=== PATIENT | female | born 1960 | race Caucasian/White ===

== ENCOUNTER → 2019-01-15 09:27 | Outpatient (CLI) | payer OTHER, SELFPAY ==
--- NOTE | 2019-01-15 09:31 | DI.US.S_ITS ---
PROCEDURE: US PELVIC COMPLETE INDICATIONS: PELVIC PAIN TECHNIQUE: Real-time scanning was performed of the pelvic organs, with image documentation. Additional endovaginal scanning was necessary due to incomplete visualization of the adnexal and endometrial structures by transabdominal scanning. COMPARISON: [facility], , PELVIC/TRANSVAGINAL, 05/25/2005, 14:02. [facility], PELVIC COMPLETE, 11/17/2015, 13:50. [facility], , PELVIC COMPLETE, 12/23/2015, 11:02. [facility], PELVIC COMPLETE, 12/29/2015, 7:51. FINDINGS: Transabdominal scanning: Limited scanning through the kidneys shows no hydronephrosis. No pathologic free abdominal or pelvic fluid. Endovaginal scanning: Uterus: Uterus is normal in size at 5.9 x 3.6 x 2.9 cm. The endometrium measures 5 mm in combined thickness. Incidental note is made of nabothian cysts. Ovaries: The right ovary measures 2.4 x 1.2 x 1 cm. The left ovary measures 1.9 x 1.2 x 0.6 cm. The ovaries have a normal sonographic appearance. No adnexal masses are seen. IMPRESSION: No significant abnormality is detected. No adnexal masses are seen. The endometrial stripe measures at the upper limits of normal for thickness for a postmenopausal woman at 5 mm. Dictated by: Amadeo Quiroz M.D. on 01/15/2019 at 11:35 Approved by: Amadeo Quiroz M.D. on 01/15/2019 at 11:37
== END ==
PROVIDERS: PCP Family Medicine; Visit Provider Obstetrics & Gynecology
DX: R10.2 Pelvic and perineal pain (principal); N88.8 Other specified noninflammatory disorders of cervix uteri; Z87.42 Personal history of other diseases of the female genital tract
CPT/HCPCS: 76830; 76856

== ENCOUNTER → 2020-05-27 09:13 | Outpatient (CLI) | payer OTHER, SELFPAY ==
--- NOTE | 2020-05-27 09:18 | DI.US.S_ITS ---
PROCEDURE: US ABDOMEN COMPLETE INDICATIONS: ABNORMAL LFTS TECHNIQUE: Real-time scanning was performed of the abdominal and retroperitoneal organs, with image documentation. COMPARISON: [facility], US, ABDOMEN COMPLETE, 07/22/2015, 9:24. FINDINGS: Liver: Liver is normal in size and homogeneous in echotexture. Gallbladder: The gallbladder appears normal Biliary ducts: Intrahepatic bile ducts are non-dilated. Extrahepatic bile duct caliber measures 4.1 mm. Normal is 6-7 mm or less in diameter, or 10 mm or less post-cholecystectomy. Pancreas: Visualized portions of the pancreas are sonographically normal. Spleen: Spleen is normal in size and homogeneous in echotexture. Kidneys: Kidneys are normal in size and echotexture. Right kidney measures 10.2 cm long; left kidney measures 9.5 cm long. No hydronephrosis or nephrolithiasis. No solid masses. Aorta: Visualized aorta is normal in caliber at less than 3 cm. Iliacs: Proximal common iliac arteries are normal in caliber at less than 2.5 cm. IVC: Intrahepatic inferior vena cava is patent. Miscellaneous: No free abdominal fluid. IMPRESSION: Normal abdominal ultrasound, source of abnormal laboratory analysis is not found. No sign of cirrhosis or biliary distension, and no liver mass lesion is seen. Dictated by: Blaise Randolph M.D. on 05/27/2020 at 14:30 Approved by: Blaise Randolph M.D. on 05/27/2020 at 14:32
== END ==
PROVIDERS: PCP Family Medicine; Referring Provider Family Medicine; Visit Provider Family Medicine
DX: R79.89 Other specified abnormal findings of blood chemistry (principal)
CPT/HCPCS: 76700

== ENCOUNTER → 2022-10-25 13:16 | Outpatient (CLI) | payer OTHER, SELFPAY ==
--- NOTE | 2022-10-25 13:20 | DI.CT.S_ITS ---
PROCEDURE: CT HEAD/BRAIN WO CON INDICATIONS: Dizziness and giddiness TECHNIQUE: Noncontrast 4.5 mm thick angled axial sections acquired from the foramen magnum to the vertex, with coronal and sagittal reformats. For radiation dose reduction, the following was used: automated exposure control, adjustment of mA and/or kV according to patient size. COMPARISON: [facility], CT, HEAD WITHOUT CONTRAST, 11/16/2010, 15:36. FINDINGS: Image quality: Excellent. CSF spaces: Basal cisterns are patent. No extra-axial fluid collections. The ventricles are symmetric in size and shape. Brain: No intracranial bleeds or masses. There is cerebral volume loss for age, with resultant ventricular and sulcal prominence. There are periventricular and deep white matter chronic small vessel ischemic changes. There is intracranial internal carotid artery atherosclerosis. Skull and face: Calvarium and visualized facial bones appear intact, without suspicious lesions. Sinuses: Visualized sinuses and mastoids are clear. IMPRESSION: Noncontrast head CT within normal limits for age. No imaging explanation is found for this patient's presenting symptoms. Dictated by: Amadeo Quiroz M.D. on 10/25/2022 at 13:47 Approved by: Amadeo Quiroz M.D. on 10/25/2022 at 13:47
== END ==
PROVIDERS: PCP Family Medicine; Referring Provider Family Medicine; Visit Provider Family Medicine
DX: R42 Dizziness and giddiness (principal)
CPT/HCPCS: 70450

== ENCOUNTER → 2023-05-30 | Outpatient (CLI) | payer OTHER, SELFPAY ==
--- NOTE | 2023-05-30 | DI.MG.S_ITS ---
BILATERAL DIGITAL SCREENING MAMMOGRAM 3D/2D WITH CAD: 05/30/2023 CLINICAL: Routine screening. Family history of breast cancer. Comparison is made to exams dated: 06/14/2022 mammogram, 05/21/2022 mammogram, 06/12/2020 mammogram, and 06/15/2021 mammogram - [facility]. There are scattered areas of fibroglandular density in both breasts (category b / 25%-50% glandular tissue). Current study was also evaluated with a Computer Aided Detection (CAD) system. There is a focal asymmetry in the right breast central to the nipple middle depth. No other significant masses, calcifications, or other findings are seen in either breast. There has been no significant interval change. IMPRESSION: INCOMPLETE: NEEDS ADDITIONAL IMAGING EVALUATION The focal asymmetry in the right breast is indeterminate. Additional views with possible ultrasound are recommended. Based on Tyrer-Cuzick model (a risk assessment model), the patient's lifetime risk is 21.4% and her 10 year risk is 9.0%. If a patient has an elevated risk, a more comprehensive evaluation should be considered and/or a referral to a genetic counselor. The [place] [employer], [employer], and NCCN Guidelines advise the consideration of Breast MRI as an adjunct to screening mammography in patients whose Lifetime risk to develop breast cancer is 20% or higher. This exam was interpreted at Station ID: [id number]. NOTE: For mammograms, a report in lay terms will be sent to the patient. Approximately 15% of breast malignancies will not be visualized mammographically. In the management of a palpable breast mass, a negative mammogram must not discourage biopsy of a clinically suspicious lesion. Electronically Signed By: Esperanza chapa/:06/07/2023 16:11:40 letter sent: Additional Imaging Needed ACR BI-RADS Category 0: Incomplete 3340F
== END ==
LOC: MAMMO 13:11
PROVIDERS: PCP Family Medicine; Referring Provider Family Medicine; Visit Provider Family Medicine
DX: Z12.31 Encounter for screening mammogram for malignant neoplasm of breast (principal); N64.89 Other specified disorders of breast
CPT/HCPCS: 77063; 77067

== ENCOUNTER → 2023-06-27 12:05 | Outpatient (CLI) | payer OTHER, SELFPAY ==
--- NOTE | 2023-06-27 | DI.MG.S_ITS ---
UNILATERAL RIGHT DIGITAL DIAGNOSTIC MAMMOGRAM 3D/2D WITH ADDITIONAL VIEWS: 06/27/2023 CLINICAL: Additional evaluation requested from prior study. Comparison is made to exams dated: 05/30/2023 mammogram - [facility], 06/14/2022 mammogram, 05/21/2022 mammogram, and 06/15/2021 mammogram - [facility]. There are scattered areas of fibroglandular density in the right breast (category b / 25%-50% glandular tissue). There is a focal asymmetry in the right breast at 7 o'clock middle depth. This is seen in additional views. No other significant masses or calcifications are seen in the breast. IMPRESSION: INCOMPLETE: NEEDS ADDITIONAL IMAGING EVALUATION The focal asymmetry in the right breast is indeterminate. A targeted ultrasound of the right breast is recommended and will be performed immediately following this exam. Based on Tyrer-Cuzick model (a risk assessment model), the patient's lifetime risk is 21.4% and her 10 year risk is 9.0%. If a patient has an elevated risk, a more comprehensive evaluation should be considered and/or a referral to a genetic counselor. The [place] [employer], [employer], and NCCN Guidelines advise the consideration of Breast MRI as an adjunct to screening mammography in patients whose Lifetime risk to develop breast cancer is 20% or higher. This exam was interpreted at Station ID: [id number]. NOTE: For mammograms, a report in lay terms will be sent to the patient. Approximately 15% of breast malignancies will not be visualized mammographically. In the management of a palpable breast mass, a negative mammogram must not discourage biopsy of a clinically suspicious lesion. Electronically Signed By: Esperanza chapa/:06/27/2023 12:31:27 ACR BI-RADS Category 0: Incomplete 3340F
--- NOTE | 2023-06-27 | DI.US.S_ITS ---
ULTRASOUND OF RIGHT BREAST: 06/27/2023 CLINICAL: Patient returns today to evaluate a focal asymmetry in the right breast. Comparison is made to exams dated: 06/27/2023 mammogram, 05/30/2023 mammogram - [facility], 06/14/2022 ultrasound biopsy, 06/14/2022 mammogram, 05/21/2022 ultrasound, and 05/21/2022 mammogram - [facility]. Color flow ultrasound of the right breast was performed on the areas of interest. Velasquez scale images of the real-time examination were reviewed. There is a 0.4 cm simple cyst in the right breast at 7 o'clock anterior depth. This simple cyst is anechoic. This correlates with mammography findings. IMPRESSION: BENIGN There is no sonographic evidence of malignancy. The 0.4 cm simple cyst in the right breast is benign. A 1 year screening mammogram is recommended. This exam was interpreted at Station ID: [id number]. Electronically Signed By: Esperanza chapa/:06/27/2023 13:02:36 letter sent: Normal Exam Ultrasound BI-RADS: 2 Benign
== END ==
PROVIDERS: PCP Family Medicine; Referring Provider Family Medicine; Visit Provider Family Medicine
DX: R92.8 Other abnormal and inconclusive findings on diagnostic imaging of breast (principal); N60.01 Solitary cyst of right breast
CPT/HCPCS: 76642; 77065; G0279

== ENCOUNTER → 2023-08-31 08:27 | Outpatient (CLI) | payer OTHER, SELFPAY ==
--- NOTE | 2023-08-31 08:33 | DI.US.S_ITS ---
PROCEDURE: US PELVIC COMPLETE INDICATIONS: INTERMITTENT RIGHT PELVIC DISCOMFORT/TINGES TECHNIQUE: Real-time scanning was performed of the pelvic organs, with image documentation. Additional endovaginal scanning was necessary due to incomplete visualization of the adnexal and endometrial structures by transabdominal scanning. COMPARISON: [facility], US, US PELVIC COMPLETE, 07/16/2019, 15:21. FINDINGS: Uterus: Uterus is retroverted and normal in size at 6.4 x 3.2 x 3.2 cm. The myometrium is heterogeneous. The endometrium measures 7.5 mm combined thickness. The endometrium is heterogeneous. Ovaries: The right ovary measures 2.2 x 1.2 x 1.5 cm, with a calculated ovarian volume of 2.2 cc. The left ovary measures 2.1 x 1.4 x 1.1 cm, with a calculated ovarian volume of 1.6 cc. The ovaries have a normal sonographic appearance. Less than 12 follicles can be seen in each ovary. No adnexal masses are seen. Other: No pathologic free abdominal or pelvic fluid. IMPRESSION: Heterogeneous endometrium which measures at the upper limits of normal. Recommend short-term follow-up ultrasound to assess stability. Ovaries are normal in appearance. No definite cause for patient's symptoms is identified. We strive to produce accurate, complete, and clear reports of imaging services. To assist us in improving patient care, this report was composed using standard report templates and voice recognition software. Therefore, it may contain abnormal punctuation, insertions and/or omissions. Occasional wrong-word or sound-alike substitutions may occur. Though we review the report and make efforts to correct it, we do recommend that the report be read carefully in proper context to recognize any text inaccuracies. Dictated by: Ray Portillo M.D. on 08/31/2023 at 10:19 Approved by: Ray Portillo M.D. on 08/31/2023 at 10:28
== END ==
LOC: US 08:28
PROVIDERS: PCP Family Medicine; Referring Provider Physician Assistant Medical; Visit Provider Physician Assistant Medical
DX: R10.2 Pelvic and perineal pain (principal)
CPT/HCPCS: 76830; 76856

== ENCOUNTER 2023-11-14 08:19 | Day surgery (SDC) | payer OTHER, SELFPAY ==
[2023-11-08 08:26] VITALS: BMI 27.0
[2023-11-14] VITALS (9 sets, daily range): BP systolic 140–162; BP diastolic 52–143; PULSE 69–88; RESP 10–22; TEMP 36.4–36.6; O2SAT 97–100; BMI 27.0
--- NOTE | 2023-11-14 | PATH_ITS ---
[facility] Accession Number: [id number] No. of containers..03 Tissue . 01 Material submitted: . PART A: endocervix - ENDOCERVICAL CURETTAGE PART B: endometrium - ENDOMETRIAL POLYP AND CURETTINGS PART C: cervix - CERVIX . 01 Diagnosis: A. ENDOCERVIX, CURETTAGE: Scant endocervical epithelium with no diagnostic abnormality. No evidence of squamous intraepithelial lesion or malignancy. . B. ENDOMETRIAL POLYP, EXCISION AND CURETTAGE: Consistent with endmoetrial polyp. Negative for atypical hyperplasia or malignancy. . C. CERVIX, LEEP: Predomnantly denuded ectocervical mucosa. Transformation zone not sampled. No squamous intraepithelial lesion identified. Negative for malignancy. [facility] 11/18/2023 1406 Local . 01 Electronically signed: . Chet Mittal MD, PhD, Pathologist NPI- [id number] . 01 Gross description: . A. Received in formalin with two identifiers and endocervical curettage, are multiple yarbrough, soft tissue fragments admixed with hemorrhagic material received on a cytobrush aggregating to 2.4 x 1.2 x 0.1 cm. Filtered and submitted entirely in A1. B. Received in formalin with two identifiers, and endometrial polyp curettings, are multiple yarbrough, soft tissue fragments aggregating to 1.4 x 1.2 x 0.1 cm. Filtered and submitted entirely in B1. C. Received in formalin with two identifiers and BX of cervix, suture at 12 o'clock, is an intact, oriented, circular fragment of cervix with a suture designating 12 o'clock per the requisition, and measuring 0.7 cm from 12-6, 1.4 cm from 3-9, and 0.5 cm thick. The ectocervix is yarbrough and finely granular with a slit-like os measuring 0.4 cm in diameter. The endocervical margin is inked orange while the remaining stromal margin are inked blue. The specimen is radially sectioned and submitted entirely as follows: C1: 12-3. C2: 3-6. C3: 6-9. C4: 9-12. ([id number]) /MRV 11/15/2023 1711 Local . 01 Pathologist provided ICD-10: R87.810, R87.612 . 01 CPT . 343970, 417795, [id number] Specimen Comment: A courtesy copy of this report has been sent to [phone] Performed at: 01 [facility] [address] [place] [address], [place], [place] [id number] MD Kobe Gonsalez MD Phone: [phone]
[2023-11-14] MEDS: LACTATED RINGERS 1,000 ML 42 ML IV ×2 (08:43→08:52)
--- NOTE | 2023-11-14 08:43 | SUR.OPER ---
Lithotomy on padded OR bed, head on pillow, arms secured on padded arm boards at <90 degrees abduction. Legs secured in padded yellow fins stirrups.
--- NOTE | 2023-11-14 09:06 | P.HPOB_ITS ---
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 She has cervical stenosis and the procedures were not able to be completed in the office. She is here for a colposcopy of the cervix, dilation of the cervix, D&C hysteroscopy, possible cervical biopsies, possible LEEP cone biopsy of the cervix. [facility] Medical History (Updated 10/06/23 @ 01:36 by Rosy Ramirez MD) Family history of breast cancer Chicken pox (~1966) Surgical History (Updated 06/25/18 @ 22:00 by Mary Jaimes) Status post delivery (~1995) Family History Mother No problems noted. Social History household members: spouse Smoking Status: Never smoker alcohol intake: current Meds Home Medications and Allergies Home Medications Medication Instructions Recorded Confirmed Type No Known Home Medications 06/26/18 11/14/23 History Allergies Allergy/AdvReac Type Severity Reaction Status Date / Time No Known Drug Allergies Allergy Verified 11/14/23 08:53 Exam Vital Signs (past 8 hours): - 11/14/23 08:54 Temperature 98 F Pulse Rate 81 Respiratory Rate 16 Blood Pressure 154/85 H Pulse Oximetry 100 Oxygen Delivery Method Room Air Oxygen Delivery Method Room Air Narrative Exam Narrative: HEENT: No thyromegaly, no anterior cervical or supraclavicular lymphadenopathy. Lungs:Clear to auscultation bilaterally, no wheezes. Cardiovascular: Regular rate and rhythm, no murmurs, rubs, or gallops. Abdomen: No scars. No hepatosplenomegaly. No masses palpable. External genitalia: Normal Vagina: Normal Cervix: Stenosis Bimanual exam: 6 Week size anteverted uterus. Extremities: No edema Assessment & Plan Assessment & Plan narrative: Assessment: 63-year-old 2 para 1 with positive high-risk HPV, low-grade RAY on Pap, endometrial thickening, cervical stenosis Plan: Colposcopy with dilation of the cervix D&C hysteroscopy Possible colposcopic biopsies Possible LEEP cone biopsy of the cervix The risks, benefits, and alternatives to the procedure were explained to the patient. The risks including bleeding, infection, and uterine perforation. She understands these risks and agrees to proceed. A full par Q was held and consent form was signed. Time Spent With Patient Time with patient: less than 30 minutes
--- NOTE | 2023-11-14 09:11 | PM.PREOP ---
Pre-operative Note Interval Note History & Physical reviewed/Exam performed by Physician: Yes Changes to H&P: No H&P completed within 30 days and has changed as indicated here:: 11/14/23
[2023-11-14] MEDS: ACETAMINOPHEN IV 1,000 MG/100 ML VIAL 400 MG IV (09:50)
[2023-11-14] MEDS: POTASSIUM IODIDE/IODINE 473 ML SOLUTION TOP (09:51)
[2023-11-14] MEDS: MEPERIDINE 50 MG/ML INJ 12.5 MG IV (10:20)
--- NOTE | 2023-11-14 10:40 | PM.GYNOP.1 ---
Operative Date/Time/Diagnoses Date of procedure: 11/14/23 Time of procedure: 10:40 Pre-op diagnosis: Cervical stenosis Low-grade RAY on Pap Thickened endometrial lining on ultrasound Post-op diagnosis: same Procedure & Clinicians Procedure: Procedures Operation Date: 11/14/23 09:45 Actual Procedure Side Surgeon p hysteroscopy WITH REMOVAL OF POLYP, D&C, INCISION OF CERVICAL OS, LEEP, ENDOMETRIAL CURRETAGE. Rosy Ramirez MD endocervical curettage (ECC) Rosy Ramirez MD Indications: 63-year-old 2 para 1 with cervical stenosis, low-grade RAY on Pap, thickened endometrial lining on ultrasound. Surgeon: Rosy Ramirez Anesthesia Type: General (LMA) Operative Notes Findings: 6 week size anteverted uterus Completely stenotic cervical os Both fallopian tube ostia observed Small polyp near the left fallopian tube ostia Thickened endometrium in the mid body of the uterus on the left side Closure Type: not applicable Specimen(s): endometrial curettings, endometrial polyp and other (Endocervical curettings, LEEP cone biopsy of the cervix with suture at 12 o'clock) Estimated blood loss (mL): 5 Blood products transfused: none Procedure in detail: After informed consent was obtained, the patient was taken to the operating room where she was placed in the dorsal supine position. After adequate LMA general anesthesia was achieved, she was placed in the dorsal lithotomy position, and prepped and draped in the usual sterile fashion. A bivalve speculum was placed into the vagina. The cervix was stenotic. An attempt was made to dilate the cervix and was unsuccessful. Using an 11 blade, the cervix was incised over the os, and immediately the os was visible. An endocervical curettage was performed. Cervix was then dilated to the #8 Hegar dilator. The MyoSure and hysteroscope pass easily into the endometrial cavity. Both fallopian tube ostia were observed. There was a small polyp outside of the fallopian tube ostia on the left side. There was thickened endometrium on the left side in the midbody of the uterus. The MyoSure was used to resect the polyp and the thickened tissue. The hysteroscope and MyoSure were removed from the uterus. The speculum was changed to the plastic coated speculum with 3 sources of suction. The plastic coated single-tooth tenaculum was too large to grasped the anterior lip of the cervix so the regular single-tooth tenaculum was used. Using the small loop, a LEEP cone biopsy of the cervix was obtained. Hemostasis was achieved. The single-tooth tenaculum was removed from the anterior lip of the cervix. The plastic coated bivalve speculum was removed from the vagina. Sponge, lap, and instrument counts were correct x2. The patient tolerated the procedure well, and was taken to PACU in stable condition. A suture was placed at 12:00 p.m. to tag the specimen. Complications: none Post-operative Condition: stable Disposition: PACU Plan for aftercare: Home after recovery
[2023-11-14] MEDS: OXYCODONE IR 5 MG TABLET PO (10:49)
[2023-11-14] MEDS: ONDANSETRON 4 MG/2 ML INJ IV (10:49)
== END 2023-11-14 11:18 | disposition home or self-care (01) ==
PROVIDERS: PCP Family Medicine; Referring Provider Obstetrics & Gynecology; Visit Provider Obstetrics & Gynecology
PROC: 0UDB8ZZ Extraction of Endometrium, Via Natural or Artificial Opening Endoscopic (ICD-10-PCS; CPT 58558; principal; 2023-11-14 09:45)
PROC: 0UBC7ZZ Excision of Cervix, Via Natural or Artificial Opening (ICD-10-PCS; CPT 57522; 2023-11-14 09:45)
DX: N88.2 Stricture and stenosis of cervix uteri (principal); R93.89 Abnormal findings on diagnostic imaging of other specified body structures; R87.612 Low grade squamous intraepithelial lesion on cytologic smear of cervix (LGSIL); N84.0 Polyp of corpus uteri
CPT/HCPCS: 58558; 57522; J0136; J1100; J1885; J2175; J2405; J2704

== ENCOUNTER → 2024-06-04 14:39 | Outpatient (CLI) | payer OTHER, SELFPAY ==
--- NOTE | 2024-06-04 14:40 | DI.MG.S_ITS ---
BILATERAL DIGITAL SCREENING MAMMOGRAM 3D/2D WITH CAD: 06/04/2024 CLINICAL: Routine screening. Family history of breast cancer. Comparison is made to exams dated: 06/27/2023 mammogram, 05/30/2023 mammogram - [facility], 06/14/2022 mammogram, 05/21/2022 mammogram, and 06/15/2021 mammogram - [facility]. There are scattered areas of fibroglandular density (category b / 25%-50% glandular tissue). Current study was also evaluated with a Computer Aided Detection (CAD) system. No significant masses, calcifications, or other findings are seen in either breast. There has been no significant interval change. IMPRESSION: NEGATIVE There is no mammographic evidence of malignancy. A 1 year screening mammogram is recommended. Based on Tyrer-Cuzick model (a risk assessment model), the patient's lifetime risk is 21.0% and her 10 year risk is 9.1%. If a patient has an elevated risk, a more comprehensive evaluation should be considered and/or a referral to a genetic counselor. The [place] [employer], [place] [employer], and NCCN Guidelines advise the consideration of Breast MRI as an adjunct to screening mammography in patients whose Lifetime risk to develop breast cancer is 20% or higher. This exam was interpreted at Station ID: [id number]. NOTE: For mammograms, a report in lay terms will be sent to the patient. Approximately 15% of breast malignancies will not be visualized mammographically. In the management of a palpable breast mass, a negative mammogram must not discourage biopsy of a clinically suspicious lesion. Electronically Signed By: Jaskaran cleary/ricardo:06/04/2024 18:08:24 letter sent: Normal Exam ACR BI-RADS Category 1: Negative
== END ==
LOC: MAMMO 14:39
PROVIDERS: PCP Family Medicine; Referring Provider Obstetrics & Gynecology; Visit Provider Obstetrics & Gynecology
DX: Z12.31 Encounter for screening mammogram for malignant neoplasm of breast (principal); Z80.3 Family history of malignant neoplasm of breast
CPT/HCPCS: 77063; 77067

== ENCOUNTER → 2025-06-10 | Outpatient (CLI) | payer OTHER, SELFPAY ==
--- NOTE | 2025-06-10 11:05 | DI.MG.S_ITS ---
MM screening mammo BI: 06/10/2025. BI-RADS: 1 CLINICAL: 64-year old female for bilateral screening mammogram. Tyrer-Cuzick lifetime risk of 26.8%. Current reported family history of breast cancer: mother, maternal aunt and maternal aunt's daughter. The patient had a prior right breast biopsy. PRIOR EXAMS: 06/04/2024, 06/27/2023, 05/30/2023, 06/14/2022, 05/21/2022, 06/15/2021, 06/12/2020. MAMMOGRAPHY TECHNIQUE: 2D and 3D (tomosynthesis) digital mammographic views obtained, with additional images as needed for full coverage. Current study was also evaluated with a Computer Aided Detection (CAD) system. DENSITY C. The breasts are heterogeneously dense, which may obscure small masses. MAMMOGRAPHY FINDINGS Bilateral: No suspicious mass, asymmetry, microcalcification, or other abnormality seen. IMPRESSION: * No evidence of malignancy. RECOMMENDATIONS Bilateral * According to the Tyrer-Cuzick Risk Assessment Model, based on the information provided your patient has a greater than 20% lifetime risk for developing breast cancer. Consider supplemental screening with breast MRI and participation in a high risk screening program. * Annual screening mammography. OVERALL ASSESSMENT CATEGORY BI-RADS-1: Negative. The [place] [employer] recommends annual screening mammography beginning at age 40 for women with average risk of breast cancer. ELECTRONICALLY SIGNED: Mey Masterson M.D. on 06/12/2025 at 09:47:46 AM PT Interpreting Station ID: [id number]
== END ==
LOC: MAMMO 11:04
PROVIDERS: PCP Family Medicine; Referring Provider Family Medicine; Visit Provider Family Medicine
DX: Z12.31 Encounter for screening mammogram for malignant neoplasm of breast (principal); R92.333 Mammographic heterogeneous density, bilateral breasts; Z80.3 Family history of malignant neoplasm of breast
CPT/HCPCS: 77063; 77067